=== PATIENT | female | born 1945 | race Caucasian/White ===

== ENCOUNTER 2017-03-13 10:52 | Day surgery (SDC) | payer MEDICARE ==
[~2017-03-13] VITALS: Ht 165.1 cm; Wt 86.2 kg
[2017-03-13] VITALS (8 sets, daily range): BP systolic 160–175; BP diastolic 51–67; PULSE 53–65; RESP 13–22; O2SAT 94–100
[~2017-03-13 10:52] MED LIST: ACET325T51 PO; CHOL100043 PO; CeFAZolin 2 Gm/50 mL D5W IV Premix IV SCH; HYDR-4003 PO; Lactated Ringer's 1,000 ML IV SCH; ONDA-53 PO; PROP10TA8 PO; SERT20OR6 PO
[2017-03-13] MEDS ORDERED: Lactated Ringer's 1,000 ML IV ONE (11:18)
[2017-03-13] MEDS ORDERED: CeFAZolin 2 Gm/50 mL D5W Duplex Bag IV ONE (11:32)
[2017-03-13] MEDS ORDERED: Lactated Ringer's 500 ML IV PRN (13:58)
[2017-03-13] MEDS ORDERED: Lactated Ringer's 1,000 ML IV SCH (13:58)
[2017-03-13] MEDS ORDERED: HYDROmorphone 1 mg/mL Inj IVPUSH PRN (14:00)
[2017-03-13] MEDS ORDERED: Dexamethasone 4 mg/mL Inj IVPUSH PRN (14:00)
[2017-03-13] MEDS ORDERED: fentaNYL-PF 50 mCg/mL 2 mL Inj IVPUSH PRN (14:00)
[2017-03-13] MEDS ORDERED: Phenylephrine 10,000 mCg/mL Inj IVPUSH PRN (14:00)
[2017-03-13] MEDS ORDERED: EPHEDrine Sulfate 50 mg/mL Inj IVPUSH PRN (14:00)
[2017-03-13] MEDS ORDERED: MetoCLOpramide 5 mg/mL 2 mL Inj IVPUSH PRN (14:00)
[2017-03-13] MEDS ORDERED: Ondansetron 2 mg/mL 2 mL Inj IVPUSH PRN (14:00)
--- NOTE | 2017-03-13 14:13 | PCM.HPANE ---
Patient Data Surgeon Admitting Provider: Attending Provider:Aren Calvert MD Primary Care Physician:Margy Christianson Other Provider:Roberto Angelo Anesthesia Reason for Visit Left Ureteral Stone Ht/WT & BMI Height (Feet): 5 Height (Inches): 5.00 Weight (Kilograms): 86.180 Body Mass Index 31.00 Allergies Coded Allergies: Sulfa (Sulfonamide Antibiotics) (Verified Allergy, Unknown, RASH, 03/06/17) adhesive tape (Verified Allergy, Unknown, 03/06/17) clindamycin (Verified Allergy, Unknown, 03/06/17) levofloxacin (Verified Allergy, Unknown, rash, 03/06/17) Past Anesthesia History Anesthesia History: Denies:: Anesthesia Reactions Diabetes History Hx Diabetes?: No MRSA MRSA: No Medications Hypertension Medication: Yes Home Meds Incl Beta Tim: Yes Date Beta Tim Taken: Mar 13, 2017 Time Beta Tim Taken: 0900 Reported Medications Ondansetron 4 Mg Tablet4-8 Mg PO Q12H PRN For Nausea 03/06/17 Hydrocodone-Acetaminophen 5-325 mg 1 Each Tablet1 Tablet PO Q6H PRN For Pain Ref 0 03/06/17 Cholecalciferol (Vitamin D3) (Vitamin D)1,000 Unit Tablet1,000 Unit PO DAILY #1 BOTTLE Ref 0 03/06/17 Acetaminophen 325 Mg [id number] Mg PO Q4H PRN For Pain Ref 0 03/06/17 Sertraline HCl (Sertraline)20 Mg/1 Ml Oral.conc25 Mg PO DAILY #1 BOTTLE Ref 0 03/06/17 Propranolol HCl 10 Mg Huzdsi02 Mg PO 2-3xdaily 90 Days Ref 0 03/06/17 Discontinued Reported Medications Propranolol HCl 10 Mg Eftfnz07 Mg PO BID 90 Days Ref 0 01/05/15 [zn plus protein] No Conflict Check15 Mg PO DAILY 12/13/14 Cholecalciferol (Vitamin D3) (Vitamin D)1,000 Unit Tablet1,500 Unit PO DAILY #1 BOTTLE Ref 0 12/13/14 Triamcinolone Acet (Triamcinolone Acetonide Cream)1 Applic/0.25 Gm Cr1 Applic EXT BID #60 GM Ref 0 12/13/14 Nitrofurantoin Macrocrystal 100 Mg [id number] Mg PO BID 10 Days Ref 0 12/13/14 Ibuprofen 200 Mg Tablet1-2 Tab PO QID PRN For Pain Ref 0 12/13/14 History History of ENT Problems?: No HEENT History: Denies:: Hearing Problem Denture Type: None Teeth Condition: Within Normal Limits Hx of Heart Problems?: Yes Cardiovascular History: Positive for:: Hypertension Denies:: AICD Abdominal Aortic Aneurism Atrial Fibrillation Congestive Heart Failure Heart Murmur Irregular Heartbeat Pacemaker Hx of Respiratory Problem?: Yes Respiratory History: Positive for:: Pneumonia (hx of aspiration pneumonia 2013 ) Use of C-PAP Machine Denies:: Tuberculosis Hx Neurologic Problems?: Yes Neurological History: Denies:: CVA Multiple Sclerosis Seizures Hx of GI Problems?: Yes Other GI Pertinent History: prior hx of c difficile infections x2- pt advised to take probiotics prior to scheduled surgery Hx of Problems?: Yes Genitourinary History: Positive for:: Kidney Stones (left stone current problem, hx of prior stones) Urinary Tract Infection Other Pertinent History: prior hx of open left stone removal Female Hx: Denies:: Currently (postmenopausal) Endometriosis Pelvic Inflammatory Problems with Breasts? Skin History: Positive for:: History Skin Disorders? Denies:: Pressure Ulcers Hx Musculoskeletal Problems?: Yes Musculoskeletal History: Denies:: Fibromyalgia Joint Replacement Musculoskeletal Trauma Hx of Psycho/Social Problems?: Yes Psycho Social History: Positive for:: Hx Depression (hx of, not current) Hx Surgeries?: Yes (open left kidney stone, prior ESWL, stents) Hx Any Other Health Problems?: Yes Other History: Positive for:: Cancer (basil cell ca on shoulder, leg) Hospitalization (tonsilectomy, ESWL with stent) Denies:: Thyroid Disease History Blood Transfusions: Denies:: Blood Transfuse Reaction Blood Transfusions Hx Diabetes: No Hx Alcohol Use: Yes (rare)Hx Substance Use: No Smoking Status: Never Smoker Have You Smoked inLast 12 mo: No Stop/Bang S-Snoring: Do You Snore Loudly: Yes T-Tired: feel tired, fatigued: No O-Obsered: Observed not breath: No P-Blood Pressure: treated: Yes B- Body Mass Index > 35 kg/m2: No A- Age over 50: Yes N- Neck Large Circumference: No G- Gender Male: No INDU Total Score: 3 Risk Assessment Category Category 1A: Patient has history of documented sleep apnea, and HAS NOT received any narcotic, sedative or anesthesia administration during this stay. Category 1B: Patient has history of documented sleep apnea, and HAS received any narcotic , sedative or anesthesia administration during this stay Category 2: Patient has SUSPECTED Obstructive Sleep Apnea, and HAS received any narcotic , sedative or anesthesia administration during this stay. Category 3: Patient has SUSPECTED Obstructive Sleep Apnea and HAS NOT received narcotic, sedative or anesthesia administration during this stay. Category 4: Outpatient in Procedural Areas with known sleep apnea or who screen positive for High Risk via the STOP/BANG questionnaire. Exam Exam Vital Signs Vital Signs Date Time Temp Pulse Resp B/P Pulse Ox O2 Delivery O2 Flow Rate FiO2 03/13/17 11:13 36.6 60 14 170/60 95 Room Air General Appearance: Alert HEENT/AIRWAY: MP 2, Neck Movement (from, 3 fb) Lungs: Clear to Auscultation Heart: Regular Rate/Rhythm Meds/Labs/Diagnostics Admission Meds Current Medications Lactated Ringer's (Lr) 1,000 ml @ ud STK-MED ONCE IV Last administered on t 11:18; Start 03/13/17 at 11:18; Stop 03/13/17 at 11:19; Status DC Plan Impression Patient chart reviewed, patient interviewed and anesthestic plan with risks, benefits, and alternatives discussed, and informed consent obtained. NPO per Anesth. Guidelines: Yes ASA Physical Status: ASA2 Mod Systemic Disease Anesthetic Plan: GA Bene/Risks/Altern/Consents: Yes HP Complete Prior to Induction: Yes Adolfo Bond MD Mar 13, 2017 11:32
[2017-03-13] MEDS ORDERED: Belladonna Alk-Opium 60 mg Rectal Suppository RECTAL ONE (14:20)
--- NOTE | 2017-03-13 14:50 | PCM.SURGPO ---
Immediate Operative Note Date of Surgery: Mar 13, 2017 Pre Operative Diagnosis L ureteral calculus Post Operative Diagnosis L ureteral calculus Procedure Cystoscopy, L ureteroscopy, Holmium laser lithotripsy, basket extraction of calculus fragments, and L ureteral stent placement Surgeon and Mold Cutting Machine Operator Surgeon: Aren Calvert MD Assistants: None Findings Cystoscopy revealed no bladder tumors, lesions, or calculi. L semi-rigid ureteroscopy revealed an approx. 9mm calculus in the L mid ureter. Holmium laser lithotripsy and basket extraction of calculus fragments were performed. L ureteral stent was placed. Complications There were no periprocedural complications identified. Surgical Specimen Removed: Yes Specimen sent to Pathology: No Surgical Specimen description: L ureteral calculus fragments sent to lab for stone analysis Anesthetic Administered: GA Grafts, Implants: Other (26cm x 5F L ureteral JJ stent (+string)) Output, Estimated Blood Loss: <5 Blood Admin during surgery: No Additional information Patient to return to see MISTY Lees in 6-8 days for post-op visit and stent removal. Aren Calvert MD Mar 13, 2017 14:50
--- NOTE | 2017-03-13 15:04 | DRSVH ---
PROCEDURE: X-RAY RETROGRADE UROGRAPHY INDICATIONS: LEFT STENT PLACEMENT TECHNIQUE: 6 intra-operative images acquired by the Urology service. COMPARISON: [facility], CT, CT KUB, 02/25/2017, 11:10. [facility], CR, RETRO GRADE UROGRAPHY, 01/05/2015, 15:10. [facility], CR, RETROGRADE UROGRAPHY, 12/10/2014, 8:00 . FINDINGS: Cannulation of the left ureter, followed by placement of a double pigtail ureteral stent s uccessfully draining contrast from the left-sided hydronephrotic collecting system. IMPRESSION: Successful double pigtail left ureteral stent placement reducing left-sided hydronephrosi s previously documented. Dictated by: Akil Hardin M.D. on 03/13/2017 at 14:59 Approved by: Akil Hardin M.D. on 03/13/2017 at 15:01
--- NOTE | 2017-03-13 15:05 | PCM.ANEP1 ---
Post Anesthesia PACU Phase 1 Assessment Vital Signs Vital Signs Date Time Temp Pulse Resp B/P Pulse Ox O2 Delivery O2 Flow Rate FiO2 03/13/17 15:00 36.3 59 14 161/56 94 Room Air 03/13/17 14:55 55 16 162/51 100 Room Air 03/13/17 14:50 65 22 171/59 100 Nasal Cannula 7 03/13/17 14:46 36.1 166/63 03/13/17 11:13 36.6 60 14 170/60 95 Room Air Anesthetic Administered: GA Level of Alertness: Awake, talking WINSTON's with Equal Strength: Yes Pain: No Nausea or Vomiting: No CV Function & Hydration Stable: Yes Airway Device: Oxygen Delivery: Simple Mask Lungs: Clear to Auscultation Dermatome Level: Full Sensation PACU Phase 2 Assessment Complications: No Follow up Care: N/A Patient Instructions Provided: N/A Adolfo Bond MD Mar 13, 2017 15:05
--- NOTE | 2017-03-13 15:11 | PCM.DISURG ---
Surgical Discharge Instruction Date of Service Mar 13, 2017 Dates of Hospitalization Date of Hospital Admission Mar 13, 2017 Providers Admitting Physician: Aren Calvert MD Primary Care Physician: Margy Christianson Attending Physician: Aren Calvert MD Discharge Diagnosis Discharge Diagnosis L ureteral calculus Post Operative diagnosis L ureteral calculus Diet Discharge Diet: No restrictions, Other (Drink at least 10-12 8oz. glasses (3 liters) of fluids per day) Activity Discharge Activity-General: No driving while taking narcotic Dressing and Incisional Care Hygiene: May shower Additional Instructions Discharge Instructions Do not pull on stent string (which is within the vagina) Follow Up Plan Follow-up Provider (F9): Margaux Lees PA-C Follow-up appointment: Days (6-8 days for post-op visit and stent removal) Call your provider for: Fever, Chills, Vomiting, Other (Pain uncontrolled by pain medications) Aren Calvert MD Mar 13, 2017 15:11
[2017-03-13] MEDS ORDERED: HYDROcodone-APAP 5-325 mg Tablet PO PRN (15:15)
[2017-03-13] MEDS ORDERED: Phenazopyridine 97.5 mg Tablet PO PRN (15:20)
--- NOTE | 2017-03-14 21:00 | OP ---
[address] [address] OPERATIVE REPORT PATIENT: GIANLUCA MONACO : 1945 MR#: [id number] ADMIT: 03/13/2017 JOB ID: [id number] DATE OF SURGERY: 03/13/2017 PREOPERATIVE DIAGNOSIS(ES): Left ureteral calculus. POSTOPERATIVE DIAGNOSIS(ES): Left ureteral calculus. PROCEDURE: Cystoscopy, left ureteroscopy, holmium laser lithotripsy, basket extraction of calculus fragments, and left ureteral stent placement. SURGEON: Aren Calvert MD PROCESSING SPECIALIST: None. ANESTHESIA: General. ESTIMATED BLOOD LOSS: Less than 5 mL. SPECIMENS: Left ureteral calculus fragments sent to the lab for stone analysis. DRAINS: A 26 cm x 5-Polish left ureteral double-J stent. COMPLICATIONS: None. CONDITION: Stable. FINDINGS: Cystoscopy revealed no bladder tumors, lesions, or calculi. Left semi-rigid ureteroscopy revealed an approximately 9 mm calculus in the left mid ureter. Holmium laser lithotripsy and basket extraction of calculus fragments was performed. Left ureteral stent was placed. INDICATIONS: The patient is a 72-year-old female seen by MISTY Lees in the office for a left proximal ureteral calculus. The patient now presents for cystoscopy, left ureteroscopy, holmium laser lithotripsy, basket extraction of calculus fragments, and left ureteral stent placement. PROCEDURE: The patient was brought to the operating room and placed supine on the operating room table. The patient was given Ancef IV antibiotic. Sequential compression device boots were placed. General anesthesia was administered. The patient was brought down into dorsal position. The patient prepped and draped in the standard sterile surgical fashion. A 22-Polish rigid cystoscope was placed through the urethra and into the bladder without difficulty. Cystoscopy revealed no bladder tumor, disease, or calculi. Bilateral ureteral orifices were in normal position. A angled tip UltraTrack guidewire was passed into the left ureteral orifice and passed up the left ureter into the left renal pelvis. Cystoscope was removed from the patient. The guidewire was secured to the drape with a Mariah clamp as a safety wire. A semi-rigid ureteroscope was advanced through the urethra and bladder and into the left ureteral orifice with the assistance of a PTFE guidewire. Left semi-rigid ureteroscopy revealed an approximately 9 mm calculus in the left mid ureter. The calculus was fragmented into small fragments using holmium laser lithotripsy using a 273 micron holmium laser fiber. Basket extraction of all significant calculus fragments was performed using a 2.2-Polish 121nexusorKamelio Helical Nitinol basket and calculus fragments were sent to the laboratory for stone analysis. The left mid and left distal ureter were visualized. No significant 2 mm or larger calculus fragments were seen. A small amount of contrast was instilled into the left ureter and left renal collecting system to illuminate the left renal collecting system to aid in stent placement. The semi-rigid ureteroscope was removed from the patient. The rigid cystoscope was passed over the PTFE guidewire, through the urethra, and into the bladder. A 26 cm x 5-Polish ureteral double J stent, with the stent string removed prior to stent placement, was passed over the guidewire, through the cystoscope, and passed up the left ureter, and placed so the proximal pigtail was located in the left renal pelvis and the distal end of the pigtail was located in the bladder. The guidewire was removed. Correct positioning of the stent was confirmed both fluoroscopically and under direct vision using the cystoscope. Good efflux of contrast could be seen draining from the distal end of the stent into the bladder, further confirming correct stent positioning. The bladder was drained via the cystoscope. The cystoscope was removed from the patient. Skin was cleaned and dried. The patient was placed in supine position. The patient was awakened from general anesthesia and transferred to the recovery room in stable condition. The patient tolerated the procedure well. The plan is for the patient to return to see MISTY Lees in 6-8 days for a postop visit and stent removal.
[2017-03-18 10:12] LABS: Stone Color Orange (.)
== END 2017-03-13 23:59 | disposition home or self-care (01) ==
LOC: SAS 10:52
PROVIDERS: ATTEND Urology
DX: N20.1 Calculus of ureter (principal); Z87.442 Personal history of urinary calculi; I10 Essential (primary) hypertension; G25.0 Essential tremor